=== PATIENT | male | born 1940 | race African-American/Black ===

== ENCOUNTER → 2017-06-11 | Outpatient (CLI) | payer MEDICARE ==
[~2017-06-11] MED LIST: CENTRUM SILVER PO; CERTAGEN PO; DICYCLOMINE HCL20 MG PO; FERRO-TIME325 MG PO; LEXAPRO PO; Q-PAP325 MG PO; [UNRECOGNIZED DRUG - REMARK]; [UNRECOGNIZED DRUG - REMARK]
--- NOTE | ~2017-06-11 | US5 ---
[facility] A Service of [facility] RADIOLOGY TEXT RESULTS PATIENT: HAROLDO GUERIN LOCATION: [facility] : 36 UNIT #: [id number] AGE: [address]: Kevyn Rivera MD SEX: M ORDER DR: [id number] [facility] [address] [place], [place] [address] [id number] O MR#: [id number] #: [id number] NAME: HAROLDO GUERIN : 1940 SEX: M STUDY DATE/TIME: 06/11/2017 8:42 UNIT: [facility] ROOM: STUDY DESCRIPTION: US Abdominal Complete Attending Physician: Kevyn Rivera M.D. Referring Physician: Kevyn Rivera M.D. Ordering Physician: Kevyn Rivera M.D. Primary Care Physician: Kevyn Rivera M.D. MEDICAL IMAGING REPORT This report is preliminary unless electronic signature is present EXAM Abdominal ultrasound HISTORY Epigastric and umbilical abdominal pain. Nausea. COMPARISON STUDIES CT abdomen and pelvis 07/20/2015. FINDINGS Visualized portions of the pancreas are normal. There is coarsened echotexture throughout the hepatic parenchyma, indicative of cirrhosis. No hepatic mass. The intrahepatic bile ducts are normal in caliber. The common duct is mildly enlarged measuring 0.9 cm at the goldy hepatis, however this is unchanged from 11/21/2016. The mid-portion of the duct is normal with no evidence of retained stone. Please note, the distal duct is not visualized. There are multiple gallstones in the gallbladder. No gallbladder distention or pericholecystic fluid. No gallbladder wall thickening. Sonographic Robins sign recorded as positive. Right kidney measures 12.3 cm. The left kidney measures 11.7 cm. Renal cortical thickness and echogenicity is normal. No hydronephrosis. Several benign renal cysts are noted. The spleen is not enlarged. The abdominal aorta is normal in caliber. The juxta-hepatic IVC is unremarkable. No ascites. IMPRESSION 1. Cirrhosis of the liver. [facility] A Service of [facility] RADIOLOGY TEXT RESULTS PATIENT: HAROLDO GUERIN LOCATION: [facility] : 36 UNIT #: [id number] AGE: [address]: Kevyn Rivera MD SEX: M ORDER DR: 2. Mild extrahepatic biliary dilatation, unchanged from October 2016. Recommend correlation with liver function test. If abnormal, consider further evaluation of the [id number] duct with an ERCP or MRCP. 3. Multiple benign hepatic cysts. 4. Cholelithiasis. Dictated by... Lenin Rush M.D. THIS IS AN ELECTRONICALLY VERIFIED REPORT Lenin Rush M.D. at 06/13/2017 9:47 AM MARCIO/noah TD: 06/11/2017 23:03 JOB #: [id number] MEDICAL IMAGING REPORT Page 1 of 1 COPY
== END | disposition home or self-care (01) ==
LOC: CGUS 08:19
DX: R10.9 Unspecified abdominal pain (principal); K74.60 Unspecified cirrhosis of liver; K83.8 Other specified diseases of biliary tract; K76.89 Other specified diseases of liver; K80.20 Calculus of gallbladder without cholecystitis without obstruction
CPT/HCPCS: 76700